=== PATIENT | female | born 1990 | race Two or more races ===

== ENCOUNTER 2020-01-31 10:38 | Observation (INO) | payer MEDICAID ==
[2020-01-31] MEDS ORDERED: METF-370 PO (12:06)
[2020-01-31] MEDS ORDERED: NIFEdipine 10 MG CAP PO ONE (12:15)
[2020-01-31] MEDS ORDERED: NIFEdipine 10 MG CAP ONE (12:20)
[2020-02-01] MEDS ORDERED: NIF10C PO (22:44)
== END 2020-01-31 13:29 | disposition home or self-care (01) ==
LOC: LDRP 10:38 → UNDOADMOB 10:38 → LDRP 11:18 → UNDODISOB 13:29
PROVIDERS: ADMIT Specialist; ATTEND Specialist
DX: O62.9 Abnormality of forces of labor, unspecified (principal); O24.419 Gestational diabetes mellitus in pregnancy, unspecified control; Z3A.35 35 weeks gestation of pregnancy
CPT/HCPCS: 59025; 76818; 81002; 82962; G0378

== ENCOUNTER 2020-02-01 22:20 | Observation (INO) | payer MEDICAID ==
[~2020-02-01] VITALS: Ht 167.6 cm; Wt 81.6 kg
[~2020-02-01 22:20] MED LIST: METF-370 PO
[2020-02-01] MEDS ORDERED: NIF10C PO (22:44)
[2020-02-01] MEDS ORDERED: TERBUTALINE SULFATE 1 MG/ML 1ML VIAL SC SCH (23:00)
[2020-02-01] MEDS ORDERED: TERBUTALINE SULFATE 1 MG/ML 1ML VIAL SC ONE (23:09)
== END 2020-02-02 00:05 | disposition home or self-care (01) ==
LOC: LDRP 22:20 → UNDOADMOB 22:20 → UNDODISOB 02-02 00:05
PROVIDERS: ADMIT Specialist; ATTEND Specialist
DX: O62.9 Abnormality of forces of labor, unspecified (principal); Z98.891 History of uterine scar from previous surgery; Z3A.36 36 weeks gestation of pregnancy
CPT/HCPCS: 59025; 81002; 96372; G0378; J3105

== ENCOUNTER 2020-02-05 09:33 | Observation (INO) | payer MEDICAID ==
[~2020-02-05 09:33] MED LIST changes: +NIF10C PO
== END 2020-02-05 12:25 | disposition home or self-care (01) ==
LOC: UNDOADMOB 09:33 → LDRP 09:33 → UNDODISOB 12:25
PROVIDERS: ADMIT Specialist; ATTEND Specialist
DX: O24.419 Gestational diabetes mellitus in pregnancy, unspecified control (principal); Z3A.36 36 weeks gestation of pregnancy
CPT/HCPCS: 59025; 76818; 81002; 82948; 82962; G0378

== ENCOUNTER 2020-02-08 10:28 | Observation (INO) | payer MEDICAID | END 2020-02-08 11:24 | disposition home or self-care (01) | LOC: LDRP 10:28 | PROVIDERS: ADMIT Obstetrics & Gynecology; ATTEND Obstetrics & Gynecology | DX: O24.415 Gestational diabetes mellitus in pregnancy, controlled by oral hypoglycemic drugs (principal); O62.9 Abnormality of forces of labor, unspecified; Z3A.37 37 weeks gestation of pregnancy; Z79.899 Other long term (current) drug therapy | CPT/HCPCS: 59025; 76818; 81002; 82962; G0378 ==

== ENCOUNTER 2020-02-12 10:41 | Observation (INO) | payer MEDICAID | END 2020-02-12 12:52 | disposition home or self-care (01) | LOC: LDRP 10:41 | PROVIDERS: ADMIT Obstetrics & Gynecology; ATTEND Obstetrics & Gynecology | DX: O24.419 Gestational diabetes mellitus in pregnancy, unspecified control (principal); Z3A.37 37 weeks gestation of pregnancy | CPT/HCPCS: 59025; 76818; 81002; 82948; 82962; G0378 ==

== ENCOUNTER 2020-02-14 23:35 | Observation (INO) | payer MEDICAID ==
[~2020-02-14] VITALS: Ht 167.6 cm; Wt 86.6 kg
[2020-02-14] MEDS ORDERED: PREN-153 OR (23:53)
[2020-02-15] MEDS ORDERED: LACTATED RINGER'S 1,000 ML IV ONE (00:30)
[2020-02-15] MEDS ORDERED: NIFEdipine 10 MG CAP ONE (01:29)
[2020-02-15] MEDS ORDERED: NIFEdipine 10 MG CAP PO ONE (01:30)
[2020-02-15 01:34] LABS: Urine Bacteria NONE SEEN /hpf (None Seen); Urine Blood Negative /uL (Negative); Urine Specific Gravity 1.006 (1.001-1.035); Urine WBC <1 /hpf (0 - 5)
[2020-02-15] MEDS ORDERED: LACTATED RINGER'S 1,000 ML IV SCH (04:15)
== END 2020-02-15 05:20 | disposition home or self-care (01) ==
LOC: LDRP 23:35 → UNDOADMOB 23:35 → UNDODISOB 02-15 05:20
PROVIDERS: ADMIT Obstetrics & Gynecology; ATTEND Obstetrics & Gynecology
DX: O62.9 Abnormality of forces of labor, unspecified (principal); Z3A.38 38 weeks gestation of pregnancy
CPT/HCPCS: 59025; 76818; 81001; 81002; 82948; 82962; 96360; 96361; G0378

== ENCOUNTER 2020-02-16 18:50 | Observation (INO) | payer MEDICAID ==
[~2020-02-16] VITALS: Ht 167.6 cm; Wt 86.6 kg
[~2020-02-16 18:50] MED LIST changes: +PREN-153 OR
[2020-02-16] MEDS ORDERED: TERBUTALINE SULFATE 1 MG/ML 1ML VIAL SC ONE (20:25)
[2020-02-16] MEDS ORDERED: TERBUTALINE SULFATE 1 MG/ML 1ML VIAL SC SCH (20:30)
[2020-02-16] MEDS ORDERED: NIFEdipine 10 MG CAP PO ONE (20:45)
== END 2020-02-16 21:57 | disposition home or self-care (01) ==
LOC: LDRP 18:50 → UNDOADMOB 18:50 → UNDODISOB 21:57
PROVIDERS: ADMIT Obstetrics & Gynecology; ATTEND Obstetrics & Gynecology
DX: O26.893 Other specified pregnancy related conditions, third trimester (principal); Z3A.38 38 weeks gestation of pregnancy
CPT/HCPCS: 59025; 76817; 76818; 81002; 82948; 82962; 96372; G0378; J3105

== ENCOUNTER 2020-02-17 09:17 | Inpatient (IN) | payer MEDICAID ==
[~2020-02-17] VITALS: Ht 1 cm; Wt 0.5 kg
[2020-02-17] VITALS (12 sets, daily range): BP systolic 106–127; BP diastolic 60–79
[2020-02-17] MEDS ORDERED: ceFAZolin 1GM/50ML 50 ML IV ONE ×2 (10:30→11:56)
[2020-02-17] MEDS ORDERED: LACTATED RINGER'S 1,000 ML IV ONE (10:30)
[2020-02-17] MEDS ORDERED: LACTATED RINGER'S 1,000 ML IV SCH (10:30)
[2020-02-17] MEDS ORDERED: MORPHINE SULF(PF) 0.5MG/ML 10ML VIAL ONE (11:09)
[2020-02-17] MEDS ORDERED: fentaNYL CITRATE 100 MCG/2 ML VL ONE (11:10)
[2020-02-17] MEDS ORDERED: SUCCINYLCHOLINE CHLORIDE 20 MG/ML 10ML VIAL IV ONE (11:40)
[2020-02-17 11:43] LABS: Basophils # (auto) 0 10 ^3/uL (0-0.2); Basophils % (auto) 0.2 % (0.0-2.0); Eosinophils # (auto) 0.1 10 ^3/uL (0-0.8); Eosinophils % (auto) 1.1 % (0.0-7.0); Hematocrit 40.8 % (36.0-46.0); Hemoglobin 13.5 g/dL (12.2-16.2); Lymphocytes # (auto) 1.3 10 ^3/uL (0.4-5.4); Lymphocytes % (auto) 17.4 % (10.0-50.0); Mean Corpuscular Hemoglobin 30.3 pg (28.0-32.0); Mean Corpuscular Volume 91.8 fL (80.0-100.0); Monocytes # (auto) 0.4 10 ^3/uL (0-1.3); Monocytes % (auto) 5.6 % (0.0-12.0); Neutrophils # (auto) 5.8 10 ^3/uL (1.6-8.6); Neutrophils % (auto) 75.7 % (37.0-80.0); Nucleated Red Blood Cells % 0.1 %; Platelet Count (auto) 219 10^3/uL (140-450); Red Blood Cells 4.45 10^6/uL (4.0-5.20); White Blood Cell 7.7 10^3/uL (4.4-10.8)
[2020-02-17] MEDS ORDERED: ROCURONIUM 10MG/ML 10ML VIAL IV ONE (11:43)
[2020-02-17 11:44] LABS: Urine Bacteria NONE SEEN /hpf (None Seen); Urine Blood Negative /uL (Negative); Urine Specific Gravity 1.009 (1.001-1.035); Urine WBC <1 /hpf (0 - 5)
[2020-02-17 11:59] LABS: Potassium 3.7 mmol/L (3.5-5.1)
[2020-02-17 12:02] LABS: INR 0.9 (0.9-1.15); Partial Thromboplastin Time 25.8 sec (23.0-31.2)
[2020-02-17 12:27] LABS: Albumin 2.5 g/dL (3.4-5.0); BUN/Creatinine Ratio 11.7; Bilirubin, Total 0.3 mg/dL (0.2-1.0); Calcium 9.5 mg/dL (8.5-10.1); Total Protein 6.7 g/dL (6.4-8.2)
[2020-02-17] MEDS ORDERED: HYDROmorphone HCL 2 MG/ML VL IV PRN ×2 (12:45→13:30)
[2020-02-17] MEDS ORDERED: LACT. RINGERS/OXYTOCIN 20UNITS 1,000 ML IV SCH (12:45)
[2020-02-17] MEDS ORDERED: ceFAZolin 1GM/50ML 50 ML IV SCH (12:45)
[2020-02-17] MEDS ORDERED: ONDANSETRON HCL 4 MG/2 ML VIAL IV PRN ×2 (12:45→13:30)
[2020-02-17] MEDS ORDERED: NALBUPHINE HCL 10 MG/1ml INJECTION SUBCUT ONE (13:30)
[2020-02-17] MEDS ORDERED: NALOXONE HCL 0.4 MG/ML VIAL IV PRN (13:30)
--- NOTE | 2020-02-17 14:00 | NUR ---
Received pt from recovery in stable condition, pericare done chux changed, SCDs applied, pt educated on mother/baby care. pt skin to skin with infant.
[2020-02-17] MEDS: MORPHINE SULFATE 4 MG/ML SYR/VIAL IV PRN (15:07)
--- NOTE | 2020-02-17 17:00 | NUR ---
pericare done, chux changed, assist pt with breast feeding.
[2020-02-17] MEDS: ceFAZolin 1GM/50ML 50 ML IV SCH (20:21)
[2020-02-17 21:44] LABS: Basophils # (auto) 0 10 ^3/uL (0-0.2); Basophils % (auto) 0.1 % (0.0-2.0); Eosinophils # (auto) 0.1 10 ^3/uL (0-0.8); Eosinophils % (auto) 0.5 % (0.0-7.0); Hematocrit 38.6 % (36.0-46.0); Lymphocytes # (auto) 1.3 10 ^3/uL (0.4-5.4); Lymphocytes % (auto) 10.2 % (10.0-50.0); Mean Corpuscular Hgb Conc. 33.7 g/dL (32.0-36.0); Mean Corpuscular Volume 91.9 fL (80.0-100.0); Monocytes # (auto) 0.6 10 ^3/uL (0-1.3); Monocytes % (auto) 4.3 % (0.0-12.0); Neutrophils # (auto) 11.1 10 ^3/uL (1.6-8.6); Neutrophils % (auto) 84.9 % (37.0-80.0); Nucleated Red Blood Cells % 0.1 %; Platelet Count (auto) 203 10^3/uL (140-450); Red Cell Distribution Width 14.8 % (11.8-14.3); White Blood Cell 13.1 10^3/uL (4.4-10.8)
[2020-02-18] VITALS (14 sets, daily range): BP systolic 102–120; BP diastolic 55–83
--- NOTE | 2020-02-18 04:00 | NUR ---
Neri catheter dc'd Order to discontinue neri catheter. Neri dc'd with clean technique following deflation of balloon. Patient tolerated well with no complaints of pain. Continue care.
--- NOTE | 2020-02-18 04:10 | NUR ---
Ambulation: Patient OOB with standby assistance by RN. Patient ambulated to bedside chair with steady gait. Pericare performed. Clean gown provided and bed linen changed. Patient ambulated back to bed with steady gait and no distress noted.
[2020-02-18] MEDS: ceFAZolin 1GM/50ML 50 ML IV SCH ×2 (04:36→12:07)
[2020-02-18] MEDS: MORPHINE SULFATE 4 MG/ML SYR/VIAL IV PRN (05:17)
[2020-02-18 06:09] LABS: RPR Non Reactive (Non Reactive)
[2020-02-18 07:08] LABS: Basophils # (auto) 0 10 ^3/uL (0-0.2); Basophils % (auto) 0.2 % (0.0-2.0); Eosinophils # (auto) 0.2 10 ^3/uL (0-0.8); Eosinophils % (auto) 1.5 % (0.0-7.0); Hematocrit 36.8 % (36.0-46.0); Hemoglobin 12.3 g/dL (12.2-16.2); Lymphocytes # (auto) 1.4 10 ^3/uL (0.4-5.4); Lymphocytes % (auto) 13.2 % (10.0-50.0); Mean Corpuscular Hemoglobin 30.7 pg (28.0-32.0); Mean Corpuscular Hgb Conc. 33.5 g/dL (32.0-36.0); Mean Corpuscular Volume 91.8 fL (80.0-100.0); Monocytes # (auto) 0.6 10 ^3/uL (0-1.3); Neutrophils # (auto) 8.2 10 ^3/uL (1.6-8.6); Neutrophils % (auto) 79.1 % (37.0-80.0); Nucleated Red Blood Cells % 0.1 %; Platelet Count (auto) 202 10^3/uL (140-450); Red Blood Cells 4.01 10^6/uL (4.0-5.20); Red Cell Distribution Width 14.7 % (11.8-14.3); White Blood Cell 10.4 10^3/uL (4.4-10.8)
[2020-02-18] MEDS ORDERED: HYDROcodone-ACET 5/325MG TAB PO PRN (07:15)
[2020-02-18] MEDS ORDERED: BISACODYL 10 MG RECT SUPP PR PRN (07:15)
[2020-02-18] MEDS: IBUPROFEN 800 MG TAB PO PRN ×2 (08:28→18:33)
--- NOTE | 2020-02-18 08:55 | NUR ---
LOWER ABDOMINAL INCISION INTACT, OPEN TO AIR, AND APPROXIMATED WITH 17 RIC. Addendum: 02/18/20 at 0911 by SUMMER OLIVA RN RN Amended: Links added.
[2020-02-18] MEDS: DOCUSATE SOD 100 MG CAP PO SCH ×2 (10:38→22:08)
[2020-02-18] MEDS: DOCUSATE CALCIUM 240 MG CAP PO SCH (10:38)
[2020-02-18] MEDS: HYDROcodone-ACET 5/325MG TAB PO PRN ×4 (10:39→23:56)
[2020-02-18] MEDS: SIMETHICONE 80 MG CHEWABLE TABLET PO SCH ×2 (12:07→18:33)
[2020-02-18] MEDS ORDERED: diphenhdrAMINE HCL 50 MG/1 ML VL IV PRN (13:00)
--- NOTE | 2020-02-18 18:40 | NUR ---
IV removal IV DC'd with clean technique, IV was leaking, painful and infiltrated. catheter fully intact. Pressure dressing applied to site. Patient tolerated well.
[2020-02-19 03:00] VITALS: BP 106/69
[2020-02-19] MEDS: IBUPROFEN 800 MG TAB PO PRN ×2 (03:13→11:25)
[2020-02-19] MEDS: SIMETHICONE 80 MG CHEWABLE TABLET PO SCH ×4 (05:19→22:30)
[2020-02-19] MEDS: HYDROcodone-ACET 5/325MG TAB PO PRN ×5 (05:20→22:43)
[2020-02-19 07:05] VITALS: BP 113/75
[2020-02-19] MEDS: DOCUSATE CALCIUM 240 MG CAP PO SCH (09:40)
[2020-02-19] MEDS: DOCUSATE SOD 100 MG CAP PO SCH ×2 (09:40→22:30)
[2020-02-19 11:15] VITALS: BP 126/74
[2020-02-19] MEDS ORDERED: THROAT LOZENGES(CEPASTAT) MT PRN (13:30)
[2020-02-19 15:20] VITALS: BP 121/71
[2020-02-19 19:15] VITALS: BP 129/84
[2020-02-19 22:47] VITALS: BP 121/73
[2020-02-20] MEDS: IBUPROFEN 800 MG TAB PO PRN (00:09)
[2020-02-20 02:42] VITALS: BP 122/70
[2020-02-20] MEDS: HYDROcodone-ACET 5/325MG TAB PO PRN (02:56)
[2020-02-20] MEDS: SIMETHICONE 80 MG CHEWABLE TABLET PO SCH ×2 (05:41→12:00)
[2020-02-20 07:00] VITALS: BP_SYST 109; BP_SYST 117; BP_DIAS 55; BP_DIAS 79
--- NOTE | 2020-02-20 08:00 | NUR ---
DR. STEVE AWARE THAT PATIENT HAS NOT HAD A BM AND PER DR. STEVE NO BM NO DISCHARGE . HOLD UNTIL PATIENT HAS A BM
[2020-02-20 10:30] VITALS: BP 115/66
[2020-02-20] MEDS: DOCUSATE CALCIUM 240 MG CAP PO SCH (10:39)
[2020-02-20] MEDS: DOCUSATE SOD 100 MG CAP PO SCH (10:39)
--- NOTE | 2020-02-20 11:08 | NUR ---
Discharge: Discharge instructions given as ordered. Pt encouraged to follow up with [facility] as instructed. All questions and concerns addressed. Patient verbalized understanding. Medication reconciliation completed and copy given to patient.
[2020-02-20 14:47] VITALS: BP 127/84
--- NOTE | 2020-02-20 16:10 | NUR ---
Discharge: Patient taken to vehicle via ambulated with all personal belongings, accompanied by staff and family member. No distress noted at time of departure, no adverse changes in status since initial assessment.
== END 2020-02-20 16:10 | disposition home or self-care (01) | DRG 540 ==
LOC: LDRP 09:17 → OBSVTOIN 09:17 → UNDOADMOB 09:17 → LDRP 21:54
PROVIDERS: ADMIT Obstetrics & Gynecology; ATTEND Obstetrics & Gynecology
PROC: 10D00Z1 Extraction of Products of Conception, Low, Open Approach (ICD-10-PCS; principal; 2020-02-17 11:54)
DX: O34.219 Maternal care for unspecified type scar from previous cesarean delivery (principal); O24.424 Gestational diabetes mellitus in childbirth, insulin controlled; O76 Abnormality in fetal heart rate and rhythm complicating labor and delivery; Z37.0 Single live birth; Z3A.38 38 weeks gestation of pregnancy; Z20.828 Contact with and (suspected) exposure to other viral communicable diseases
CPT/HCPCS: 36415; 59025; 76817; 76818; 80053; 81001; 81002; 82948; 82962; 85025; 85610; 85730; 86592; 86850; 86900; 86901; 87426; 94762; 96360; 96361; 96365; 96366; 96372; G0378; J0330; J0690; J2590

== ENCOUNTER 2021-10-23 13:19 | Emergency (ER) | payer MEDICAID ==
[~2021-10-23] VITALS: Ht 167.6 cm; Wt 63.0 kg
[~2021-10-23 13:19] MED LIST changes: -PREN-153 OR; +PREN1TAB71 OR
[2021-10-23 14:54] LABS: Basophils # (auto) 0 10 ^3/uL (0-0.2); Lymphocytes # (auto) 1.2 10 ^3/uL (0.4-5.4); Mean Corpuscular Hgb Conc. 34.5 g/dL (32.0-36.0); Monocytes # (auto) 0.5 10 ^3/uL (0-1.3)
[2021-10-23 14:57] LABS: Basophils % (auto) 0.5 % (0.0-2.0); Eosinophils # (auto) 0.2 10 ^3/uL (0-0.8); Eosinophils % (auto) 2.5 % (0.0-7.0); Hematocrit 43.3 % (36.0-46.0); Hemoglobin 14.9 g/dL (12.2-16.2); Lymphocytes % (auto) 19.1 % (10.0-50.0); Mean Corpuscular Hemoglobin 34.4 pg (28.0-32.0); Mean Corpuscular Volume 99.8 fL (80.0-100.0); Monocytes % (auto) 8.6 % (0.0-12.0); Neutrophils # (auto) 4.3 10 ^3/uL (1.6-8.6); Neutrophils % (auto) 69.3 % (37.0-80.0); Nucleated Red Blood Cells % 0.1 %; Red Blood Cells 4.34 10^6/uL (4.0-5.20); Red Cell Distribution Width 12.2 % (11.8-14.3); White Blood Cell 6.1 10^3/uL (4.4-10.8)
[2021-10-23 15:11] LABS: BUN/Creatinine Ratio 11.7; Potassium 3.5 mmol/L (3.5-5.1)
[2021-10-23] MEDS ORDERED: AMOX500C2 PO (15:48)
[2021-10-23] MEDS ORDERED: METH4PAK PO (15:48)
[2021-10-23] MEDS ORDERED: HYDR50CA PO (15:48)
[2021-10-23 15:51] VITALS: BP 134/90
== END 2021-10-23 15:57 | disposition home or self-care (01) ==
LOC: ER 13:19
DX: J20.9 Acute bronchitis, unspecified (principal); F41.9 Anxiety disorder, unspecified; R94.31 Abnormal electrocardiogram [ECG] [EKG]
CPT/HCPCS: 36415; 71046; 80048; 84484; 85025; 93005

== ENCOUNTER 2021-11-21 14:12 | Emergency (ER) | payer MEDICAID ==
[~2021-11-21] VITALS: Ht 167.6 cm; Wt 59.0 kg
[~2021-11-21 14:12] MED LIST changes: +AMOX500C2 PO; +HYDR50CA PO; +METH4PAK PO
[2021-11-21 14:38] LABS: Basophils # (auto) 0 10 ^3/uL (0-0.2); Eosinophils # (auto) 0 10 ^3/uL (0-0.8); Monocytes # (auto) 0.5 10 ^3/uL (0-1.3)
[2021-11-21 14:40] LABS: Basophils % (auto) 0.9 % (0.0-2.0); Eosinophils % (auto) 0.7 % (0.0-7.0); Hematocrit 43.8 % (36.0-46.0); Hemoglobin 15.1 g/dL (12.2-16.2); Lymphocytes % (auto) 21.3 % (10.0-50.0); Mean Corpuscular Hemoglobin 34.6 pg (28.0-32.0); Mean Corpuscular Hgb Conc. 34.6 g/dL (32.0-36.0); Mean Corpuscular Volume 100.2 fL (80.0-100.0); Monocytes % (auto) 9.9 % (0.0-12.0); Neutrophils # (auto) 3.1 10 ^3/uL (1.6-8.6); Neutrophils % (auto) 67.2 % (37.0-80.0); Red Blood Cells 4.37 10^6/uL (4.0-5.20); Red Cell Distribution Width 12.2 % (11.8-14.3); White Blood Cell 4.7 10^3/uL (4.4-10.8)
[2021-11-21 14:49] LABS: Urine Bacteria FEW /hpf (None Seen); Urine Blood Negative /uL (Negative); Urine Mucus FEW (None Seen); Urine Specific Gravity 1.028 (1.001-1.035); Urine WBC 3 /hpf (0 - 5)
[2021-11-21 14:56] LABS: Calcium 9.4 mg/dL (8.5-10.1); Potassium 3.5 mmol/L (3.5-5.1)
[2021-11-21 15:00] LABS: BUN/Creatinine Ratio 11.6; Bilirubin, Total 2.1 mg/dL (0.2-1.0)
[2021-11-21] MEDS ORDERED: SODIUM CHLORIDE 0.9% 1,000 ML IVB ONE (15:00)
[2021-11-21] MEDS ORDERED: ONDANSETRON HCL 4 MG/2 ML VIAL IV ONE (15:00)
[2021-11-21 16:02] LABS: Alcohol, Urine < 3.0 mg/dL (0-10); Amphetamine Screen, Urine NEGATIVE (NEGATIVE); Barbiturate Scree,Urine NEGATIVE (NEGATIVE); Benzodiazephine Screen, Urine NEGATIVE (NEGATIVE); Cannabinoid Screen, Urine NEGATIVE (NEGATIVE); Cocaine Screen, Urine POSITIVE (NEGATIVE); Opiate Scree,Urine NEGATIVE (NEGATIVE); Phencyclidine Screen, Urine NEGATIVE (NEGATIVE)
[2021-11-21] MEDS ORDERED: TRAM-297 PO (17:27)
[2021-11-21] MEDS ORDERED: ONDA-144 PO (17:27)
[2021-11-21 17:54] VITALS: BP 142/76
== END 2021-11-21 17:54 | disposition home or self-care (01) ==
LOC: ER 14:12
DX: K80.20 Calculus of gallbladder without cholecystitis without obstruction (principal); F14.10 Cocaine abuse, uncomplicated
CPT/HCPCS: 36415; 76705; 80053; 80307; 81001; 83690; 85025; 96361; 96374; 99284; J2405; J7030